=== PATIENT | male | born 1980 | race African-American/Black ===

== ENCOUNTER 2023-06-22 05:55 | Day surgery (SDC) | payer OTHER ==
[~2023-06-22] VITALS: Ht 175.3 cm; Wt 93.4 kg
[2023-06-22] MEDS ORDERED: OXYC1TAB9 PO (13:14)
== END 2023-06-22 16:30 | disposition home or self-care (01) ==
LOC: CIR.AMB 05:55 → U 05:55 → CIR.AMB 16:30
PROVIDERS: ATTEND Surgery
DX: K60.3 Anal fistula (principal); K62.89 Other specified diseases of anus and rectum; Z20.822 Contact with and (suspected) exposure to COVID-19

== ENCOUNTER 2023-09-27 06:16 | Day surgery (SDC) | payer OTHER ==
[~2023-09-27 06:16] MED LIST: OXYC1TAB9 PO
[2023-09-27] MEDS ORDERED: OXYC1TAB9 PO (11:01)
== END 2023-09-27 13:45 | disposition home or self-care (01) ==
LOC: CIR.AMB 06:16
PROVIDERS: ATTEND Surgery
DX: K60.3 Anal fistula (principal); K62.89 Other specified diseases of anus and rectum; I10 Essential (primary) hypertension; Z20.822 Contact with and (suspected) exposure to COVID-19